=== PATIENT | female | born 1965 | race African-American/Black ===

== ENCOUNTER → 2016-10-20 | Outpatient (CLI) | payer OTHER | LOC: RAD 10:16 | DX: Z12.31 Encounter for screening mammogram for malignant neoplasm of breast (principal) ==

== ENCOUNTER → 2018-01-08 | Outpatient (CLI) | payer OTHER | LOC: RAD 02:59 | DX: N63.22 Unspecified lump in the left breast, upper inner quadrant (principal) ==

== ENCOUNTER → 2018-11-21 | Outpatient (CLI) | payer OTHER | LOC: RAD 01:37 | DX: Z12.31 Encounter for screening mammogram for malignant neoplasm of breast (principal) ==